=== PATIENT | female | born 1965 | race American Indian/Alaskan Native ===

== ENCOUNTER 2019-02-08 21:50 | Emergency (ER) | payer OTHER ==
--- NOTE | 2019-02-08 22:01 | Emergency Department Report ---
Blank Doc - Documentation Documentation: This is a 53-year-old female that presents with left flank pain with radiation to abdominal area. This initial assessment/diagnostic orders/clinical plan/treatment(s) is/are subject to change based on patient's health status, clinical progression and re- assessment by fellow clinical providers in the ED. Further treatment and workup at subsequent clinical providers discretion. Patient/guardians urged not to elope from the ED as their condition may be serious if not clinically assessed and managed. Initial orders include: 1- Patient sent to [facility] for further evaluation and treatment. 2-labs 3- UA
[2019-02-08 22:21] LABS: Basophils # (Auto) 0.1 K/mm3 (0.0-0.1); Basophils % (Auto) 0.8 % (0.0-1.8); Eosinophils # (Auto) 0.2 K/mm3 (0.0-0.4); Eosinophils % (Auto) 2.6 % (0.0-4.3); Hemoglobin 13.3 gm/dl (10.1-14.3); Lymphocytes # (Auto) 3.5 K/mm3 (1.2-5.4); Lymphocytes % (Auto) 37.1 % (13.4-35.0); Mean Corpuscular HGB Conc 34 % (30-34); Mean Corpuscular Volume 85 fl (79-97); Monocytes # (Auto) 0.8 K/mm3 (0.0-0.8); Monocytes % (Auto) 8.1 % (0.0-7.3); Platelet Count 213 K/mm3 (140-440); Red Blood Count 4.59 M/mm3 (3.65-5.03); Red Cell Distribution Width 15.5 % (13.2-15.2)
[2019-02-08 22:57] LABS: Alanine Aminotransferase 15 units/L (7-56); BUN/Creatinine Ratio 21; Blood Urea Nitrogen 17 mg/dL (7-17); Hemolysis Index 14
[2019-02-09 00:24] LABS: Bilirubin,Urine NEG (Negative); Blood,Urine NEG (Negative); Color,Urine Yellow (Yellow); Mucus,Urine FEW /HPF; Protein,Urine <15 mg/dL mg/dL (Negative); Urobilinogen,Urine < 2.0 mg/dL (<2.0); WBC,Urine < 1.0 /HPF (0.0-6.0)
[2019-02-09] MEDS ORDERED: DILAUDID IM ONE (02:31)
[2019-02-09] MEDS ORDERED: ZOFRAN ODT PO ONE (02:31)
[2019-02-09] MEDS ORDERED: TORADOL IM ONE (02:32)
[2019-02-09] MEDS ORDERED: DELTASONE PO ONE (02:32)
--- NOTE | 2019-02-09 03:41 | Emergency Department Report ---
ED General Adult HPI - General Chief complaint: Back Pain/Injury Stated complaint: BACK PAIN Time Seen by Provider: 02/08/19 22:00 Source: patient Mode of arrival: Ambulatory Limitations: No Limitations - History of Present Illness Initial comments: Patient is a 53 hours, female with a history of hypertension who presents to the ED with a complaint of acute onset nontraumatic low back pain but admits to left flank abdomen for the last 4 days. Patient states that the pain is sharp and persistently severe. Patient says that she was evaluated at another hospital ED and was given prescription for Tylenol with Codeine and a muscle relaxants with no relief. Patient denies hematuria, but particularly, abdominal pain, vaginal bleeding, fever, fall, traumatic injury, chills, urinary frequency and urgency, dysuria or shortness of breath. MD Complaint: low back pain -: Sudden, days(s) (4) Location: back Radiation: non-radiation Severity scale (0 -10): 6 Quality: burning, aching, sharp, constant Consistency: constant Improves with: none Worsens with: none Associated Symptoms: denies other symptoms. denies: confusion, chest pain, cough, diaphoresis, fever/chills, headaches, loss of appetite, malaise, shortness of breath, syncope, weakness, other Treatments Prior to Arrival: none - Related Data Previous Rx's Medication Instructions Recorded Last Taken Type Tobramycin [Tobrex 0.3%] 1 - 2 drop OP Q4HR #1 drops 08/14/14 Unknown Rx HYDROcodone/APAP 5-325 [[place] 1 each PO Q6HR PRN #12 tablet 05/01/16 Unknown Rx 5/325] Ibuprofen [Motrin 800 MG tab] 800 mg PO Q8HR PRN #30 tablet 05/01/16 Unknown Rx amLODIPine [Norvasc] 10 mg PO DAILY #30 tab 05/01/16 Unknown Rx Carisoprodol [Soma] 350 mg PO Q8H PRN #21 tablet 02/09/19 Unknown Rx Gabapentin [Neurontin] 300 mg PO Q8HR PRN #30 capsule 02/09/19 Unknown Rx Ketorolac [Toradol] 10 mg PO Q8H PRN #20 tablet 02/09/19 Unknown Rx Valacyclovir HCl [Valtrex] 1,000 mg PO Q8H #30 tablet 07/02/19 Unknown Rx Allergies Allergy/AdvReac Type Severity Reaction Status Date / Time morphine Allergy Itching Verified 08/14/14 10:48 tramadol Allergy Nausea Verified 05/01/16 14:44 ED Review of Systems ROS: Stated complaint: BACK PAIN Other details as noted in HPI Comment: All other systems reviewed and negative Constitutional: denies: chills, fever Eyes: denies: eye pain, eye discharge, vision change ENT: denies: ear pain, throat pain Respiratory: denies: cough, shortness of breath, wheezing Cardiovascular: denies: chest pain, palpitations Endocrine: no symptoms reported Gastrointestinal: denies: abdominal pain, nausea, diarrhea Genitourinary: denies: urgency, dysuria, discharge Musculoskeletal: back pain (lower back pain). denies: joint swelling, arthralgia Skin: denies: rash, lesions Neurological: denies: headache, weakness, paresthesias Psychiatric: denies: anxiety, depression Hematological/Lymphatic: denies: easy bleeding, easy bruising ED Past Medical Hx - Past Medical History Previous Medical History?: Yes Hx Hypertension: Yes - Surgical History Past Surgical History?: Yes Additional Surgical History: hysterectomy - Social History Smoking Status: Current Every Day Smoker Substance Use Type: None - Medications Home Medications: Home Medications Medication Instructions Recorded Confirmed Last Taken Type Tobramycin [Tobrex 0.3%] 1 - 2 drop OP Q4HR #1 drops 08/14/14 Unknown Rx HYDROcodone/APAP 5-325 [[place] 1 each PO Q6HR PRN #12 tablet 05/01/16 Unknown Rx 5/325] Ibuprofen [Motrin 800 MG tab] 800 mg PO Q8HR PRN #30 tablet 05/01/16 Unknown Rx amLODIPine [Norvasc] 10 mg PO DAILY #30 tab 05/01/16 Unknown Rx Carisoprodol [Soma] 350 mg PO Q8H PRN #21 tablet 02/09/19 Unknown Rx Gabapentin [Neurontin] 300 mg PO Q8HR PRN #30 capsule 02/09/19 Unknown Rx Ketorolac [Toradol] 10 mg PO Q8H PRN #20 tablet 02/09/19 Unknown Rx Valacyclovir HCl [Valtrex] 1,000 mg PO Q8H #30 tablet 02/09/19 Unknown Rx ED Physical Exam - General Limitations: No Limitations General appearance: alert, in no apparent distress - Head Head exam: Present: atraumatic, normocephalic, normal inspection - Eye Eye exam: Present: normal appearance, PERRL, EOMI - ENT ENT exam: Present: normal exam, normal orophraynx, mucous membranes moist, TM's normal bilaterally, normal external ear exam - Neck Neck exam: Present: normal inspection, full ROM. Absent: tenderness, lymphadenopathy, thyromegaly - Respiratory Respiratory exam: Present: normal lung sounds bilaterally. Absent: respiratory distress, wheezes, rales, chest wall tenderness, accessory muscle use - Cardiovascular Cardiovascular Exam: Present: regular rate, normal rhythm, normal heart sounds. Absent: systolic murmur, diastolic murmur, rubs, gallop - GI/Abdominal GI/Abdominal exam: Present: soft, normal bowel sounds. Absent: hyperactive bowel sounds, hypoactive bowel sounds, organomegaly - Rectal Rectal exam: Present: deferred - Extremities Exam Extremities exam: Present: normal inspection, full ROM, normal capillary refill - Back Exam Back exam: Present: normal inspection, tenderness, muscle spasm, paraspinal tenderness (Palpable lumbosacral paraspinal musculoskeletal tenderness) - Neurological Exam Neurological exam: Present: alert, oriented X3, CN II-XII intact, normal gait, reflexes normal - Psychiatric Psychiatric exam: Present: normal affect, normal mood - Skin Skin exam: Present: warm, dry, intact, normal color. Absent: rash ED Course Vital Signs 02/09/19 02/09/19 03:22 03:23 Respiratory 22 22 Rate - Reevaluation(s) Reevaluation #1: 02/09/19 03:43 Patient is alert and oriented 3 and is in no distress. Patient was treated for pain in the ED and urinalysis unremarkable. On reevaluation, patient's pain is moderately controlled and patient was discharged home medications and advised to follow-up with her primary care physician in 2-3 days for reevaluation or return to the ED immediately if symptoms get worse. ED Medical Decision Making - Lab Data Result diagrams: 02/08/19 22:04 02/08/19 22:04 - Medical Decision Making Patient is alert and oriented 3 and is in no distress. Patient was treated for pain in the ED and urinalysis unremarkable. On reevaluation, patient's pain is moderately controlled and patient was discharged home medications and advised to follow-up with her primary care physician in 2-3 days for reevaluation or re turn to the ED immediately if symptoms get worse. - Differential Diagnosis chronic low back pain with sciatica; muscle spasm of back; shingles Critical care attestation.: If time is entered above; I have spent that time in minutes in the direct care of this critically ill patient, excluding procedure time. ED Disposition Clinical Impression: Spasm of muscle of lower back, Lumbar radiculopathy, chronic Chronic low back pain with right-sided sciatica Qualifiers: Back pain laterality: left Qualified Code(s): M54.41 - Lumbago with sciatica, right side; G89.29 - Other chronic pain Shingles outbreak Qualifiers: Herpes zoster complications: without complications Qualified Code(s): B02.9 - Zoster without complications Disposition: TO HOME OR SELFCARE Is pt being admited?: No Does the pt Need Aspirin: No Condition: Stable Instructions: Lumbar Radiculopathy (ED), Arthralgia (ED), Herpes Zoster (ED), Muscle Spasm (ED) Additional Instructions: Take medications, drink plenty of rest and follow-up with your primary care physician in 5-7 days for reevaluation. Return to the ED immediately if symptoms get worse. Prescriptions: Gabapentin [Neurontin] 300 mg PO Q8HR PRN #30 capsule PRN Reason: Pain , Severe (7-10) Carisoprodol [Soma] 350 mg PO Q8H PRN #21 tablet PRN Reason: Spasms Ketorolac [Toradol] 10 mg PO Q8H PRN #20 tablet PRN Reason: Pain Valacyclovir HCl [Valtrex] 1,000 mg PO Q8H #30 tablet Referrals: [facility] [Outside] - 3-5 Days Time of Disposition: 03:46 Print Language: SAUDI ARABIAN
[2019-02-09 04:18] VITALS: BP 139/72
== END 2019-02-09 04:26 | disposition home or self-care (01) ==
LOC: ED 21:50
DX: M54.41 Lumbago with sciatica, right side (principal); M54.16 Radiculopathy, lumbar region; M62.830 Muscle spasm of back; B02.9 Zoster without complications; G89.29 Other chronic pain; Z88.6 Allergy status to analgesic agent
CPT/HCPCS: 36415; 80053; 81001; 85025; 96372; 99283; J1170; J1885; J7512; Q0162

== ENCOUNTER 2021-07-18 14:14 | Emergency (ER) | payer SELFPAY ==
--- NOTE | 2021-07-18 14:39 | Emergency Department Report ---
ED Chest Pain HPI - General Chief Complaint: Chest Pain Stated Complaint: R SIDE CHEST PAIN PUI?: No Time Seen by Provider: 07/18/21 14:24 Source: patient Mode of arrival: Wheelchair Limitations: No Limitations - History of Present Illness Initial Comments: Chief complaint chest pain HPI: This a 55-year-old female with history of tobacco dependence, hypertension who presents with severe 10 out of 10 right-sided chest pain. Pain is worse with inspiration and cough. Patient has had cold-like symptoms for the past week. On Friday Covid test negative. She works in a daycare. There was a possible Covid exposure at her job. She is not vaccinated against COVID-19. No previous history of heart disease. MD Complaint: chest pain -: Gradual, days(s) (2 days ago) Onset: during rest Severity scale (0 -10): 10 Quality: sharp Consistency: constant Improves With: nothing Worsens With: inspiration, movement (Coughing) Context: recent illness, other (Cold-like symptoms with cough possible Covid exp osure at a job) Other Symptoms: cough Treatments Prior to Arrival: none - Related Data Previous Rx's Medication Instructions Recorded Last Taken Type Tobramycin [Tobrex 0.3%] 1 - 2 drop OP Q4HR #1 drops 08/14/14 Unknown Rx HYDROcodone/APAP 5-325 [[place] 1 each PO Q6HR PRN #12 tablet 05/01/16 Unknown Rx 5/325] Ibuprofen [Motrin 800 MG tab] 800 mg PO Q8HR PRN #30 tablet 05/01/16 Unknown Rx amLODIPine 10 mg PO DAILY #30 tab 05/01/16 Unknown Rx Gabapentin 300 mg PO Q8HR PRN #30 capsule 02/09/19 Unknown Rx Ketorolac [Toradol] 10 mg PO Q8H PRN #20 tablet 02/09/19 Unknown Rx Valacyclovir HCl [Valtrex] 1,000 mg PO Q8H #30 tablet 02/09/19 Unknown Rx carisoprodoL [Soma] 350 mg PO Q8H PRN #21 tablet 02/09/19 Unknown Rx Amoxicillin/Potassium Clav 1 each PO BID 7 Days #144 tablet 07/18/21 Unknown Rx [Augmentin 875-125 Tablet] oxyCODONE /ACETAMINOPHEN [Percocet 1 tab PO Q6HR PRN #15 tablet 07/18/21 Unknown Rx 5/325] Allergies Allergy/AdvReac Type Severity Reaction Status Date / Time morphine Allergy Itching Verified 07/18/21 14:16 tramadol Allergy Nausea Verified 07/18/21 14:16 Heart Score - HEART Score History: Slightly suspicious EKG: Non-specific Age: 45-65 Risk factors: 1-2 risk factors Troponin: < normal limit HEART Score: 3 - EKG Read Time Time EKG Completed: 00:00 EKG Read Time: 00:00 - Critical Actions Critical Actions: 0-3 pts:0.9-1.7%risk of adverse cardiac event.Candidate for discharge ED Review of Systems ROS: Stated complaint: R SIDE CHEST PAIN Other details as noted in HPI Comment: All other systems reviewed and negative Constitutional: denies: chills, diaphoresis, fever Respiratory: cough, shortness of breath Cardiovascular: chest pain Gastrointestinal: denies: abdominal pain, nausea, vomiting Musculoskeletal: denies: back pain ED Past Medical Hx - Past Medical History Previous Medical History?: Yes Hx Hypertension: Yes - Surgical History Past Surgical History?: Yes Additional Surgical History: hysterectomy - Social History Smoking Status: Current Every Day Smoker Substance Use Type: None - Medications Home Medications: Home Medications Medication Instructions Recorded Confirmed Last Taken Type Tobramycin [Tobrex 0.3%] 1 - 2 drop OP Q4HR #1 drops 08/14/14 Unknown Rx HYDROcodone/APAP 5-325 [[place] 1 each PO Q6HR PRN #12 tablet 05/01/16 Unknown Rx 5/325] Ibuprofen [Motrin 800 MG tab] 800 mg PO Q8HR PRN #30 tablet 05/01/16 Unknown Rx amLODIPine 10 mg PO DAILY #30 tab 05/01/16 Unknown Rx Gabapentin 300 mg PO Q8HR PRN #30 capsule 02/09/19 Unknown Rx Ketorolac [Toradol] 10 mg PO Q8H PRN #20 tablet 02/09/19 Unknown Rx Valacyclovir HCl [Valtrex] 1,000 mg PO Q8H #30 tablet 02/09/19 Unknown Rx carisoprodoL [Soma] 350 mg PO Q8H PRN #21 tablet 02/09/19 Unknown Rx Amoxicillin/Potassium Clav 1 each PO BID 7 Days #144 tablet 07/18/21 Unknown Rx [Augmentin 875-125 Tablet] oxyCODONE /ACETAMINOPHEN [Percocet 1 tab PO Q6HR PRN #15 tablet 07/18/21 Unknown Rx 5/325] ED Physical Exam - General Limitations: No Limitations General appearance: alert, in no apparent distress, other (Patient tearful in s evere pain holding chest) - Head Head exam: Present: atraumatic, normocephalic - Eye Eye exam: Present: normal appearance - ENT ENT exam: Present: mucous membranes moist - Neck Neck exam: Present: normal inspection, full ROM - Respiratory Respiratory exam: Present: normal lung sounds bilaterally. Absent: respiratory distress, wheezes, rales, rhonchi - Cardiovascular Cardiovascular Exam: Present: regular rate, normal rhythm, normal heart sounds. Absent: systolic murmur, diastolic murmur, rubs, gallop - GI/Abdominal GI/Abdominal exam: Present: soft, normal bowel sounds. Absent: distended, tenderness, rebound - Extremities Exam Extremities exam: Present: normal inspection - Neurological Exam Neurological exam: Present: alert, oriented X3 - Psychiatric Psychiatric exam: Present: normal affect, normal mood - Skin Skin exam: Present: warm, dry, intact, normal color. Absent: rash ED Course Vital Signs 07/18/21 07/18/21 07/18/21 14:17 14:37 14:52 Temperature 98.2 F Pulse Rate 72 78 Respiratory 22 22 Rate Blood Pressure 124/103 143/80 [Left] O2 Sat by Pulse 99 98 98 Oximetry ED Medical Decision Making - Lab Data Result diagrams: 07/18/21 14:55 07/18/21 14:55 - EKG Data -: EKG Interpreted by Az - EKG Data 07/18/21 15:20 EKG@1451 EKG inserted by oh Sinus bradycardia rate 55 bpm normal axis normal intervals no ST elevation - Radiology Data Radiology results: report reviewed Patient Name: ANDREA SETHI Gender: Female Date of : 1965 Referring Provider: PA PETERSEN Organization: [facility] Accession Number: [id number] Requested Date: July 18, 2021 : Report Status: Final Requested Procedure: 1 Procedure Description: XR chest 1V ap Modality: XR Findings Reporting MD: Jr Bermeo Dictation Time: July 18, 2021 14:28 [employer] Set Up Operator: Not available Parimutuel Clerk Date: CHEST 1 VIEW 07/18/2021 3:08 PM INDICATION / CLINICAL INFORMATION: pleuritic right sided chest pain. COMPARISON: 11/13/2011 FINDINGS: SUPPORT DEVICES: None. HEART / MEDIASTINUM: No significant abnormality. LUNGS / PLEURA: Bibasilar opacities. No pneumothorax. ADDITIONAL FINDINGS: No significant additional findings. IMPRESSION: 1. Bibasilar opacities which may represent infectious process in the appropriate clinical setting. Signer Name: Jr Bermeo DO Signed: 07/18/2021 2:28 PM Workstation Name: [id number] Patient Name: ANDREA SETHI Gender: Female Date of : 1965 Referring Provider: PA PETERSEN Organization: [facility] Accession Number: [id number] Requested Date: July 18, 2021 14:40 Report Status: Final Requested Procedure: 1 Procedure Description: CT angio chest Modality: CT Findings Reporting MD: Sánchez Lan Dictation Time: July 18, 2021 17:00 [employer] Set Up Operator: Not available Parimutuel Clerk Date: CTA CHEST WITH CONTRAST INDICATION / CLINICAL INFORMATION: Right-sided pleuritic chest pain. Shortness of breath. TECHNIQUE: Axial CT images were obtained through the chest after injection of Omnipaque 350, 100 cc IV contrast. 3 plane MIP and/or 3D reconstructions were produced. All CT scans at this location are performed using CT dose reduction for ALARA by means of automated exposure control. COMPARISON: None available. FINDINGS: PULMONARY ARTERIES: No pulmonary emboli. THORACIC AORTA: No significant abnormality. HEART: No significant abnormality. CORONARY ARTERY CALCIFICATION: None. MEDIASTINUM / JONATHON: No significant abnormality. PLEURA: No pleural effusion. No pneumothorax. LUNGS: Moderate opacity right base. Mild opacity left base. ADDITIONAL FINDINGS: None. UPPER ABDOMEN: No acute findings. SKELETAL STRUCTURES: No significant osseous abnormality. IMPRESSION: 1. No CT evidence for pulmonary embolism. 2. Basilar opacity right greater than left. The appearance is more typical of atelectasis than pneumonia. Signer Name: Sánchez Lan MD Signed: 07/18/2021 5:00 PM Workstation Name: [id number] - Medical Decision Making Community-acquired pneumonia without evidence of PE. Troponin negative. Troponin x2 -. Prescribed Augmentin and Percocet. Recommended repeat Covid testing. Critical care attestation.: If time is entered above; I have spent that time in minutes in the direct care of this critically ill patient, excluding procedure time. ED Disposition Clinical Impression: Community acquired pneumonia, Suspected COVID-19 virus infection Disposition: HOME / SELF CARE / HOMELESS Is pt being admited?: No Does the pt Need Aspirin: No Condition: Stable Instructions: Bacterial Pneumonia (ED), Community-Acquired Pneumonia, Adult Prescriptions: Amoxicillin/Potassium Clav [Augmentin 875-125 Tablet] 1 each PO BID 7 Days #144 tablet oxyCODONE /ACETAMINOPHEN [Percocet 5/325] 1 tab PO Q6HR PRN #15 tablet PRN Reason: Pain Referrals: PRIMARY CARE, [Primary Care Provider] - 3-5 Days
[2021-07-18] MEDS ORDERED: ONDANSETRON 4 MG/2 ML INJ IV ONE (14:41)
[2021-07-18] MEDS ORDERED: HYDROmorphone 1 MG/1 ML INJ IV ONE (14:41)
[2021-07-18 14:53] VITALS: BP 143/80
[2021-07-18 15:14] LABS: Hematocrit 42.3 % (30.3-42.9); Hemoglobin 13.7 gm/dl (10.1-14.3); Mean Corpuscular HGB Conc 32 % (30-34); Mean Corpuscular Volume 84 fl (79-97); Platelet Count 227 K/mm3 (140-440); Red Blood Count 5.02 M/mm3 (3.65-5.03); Red Cell Distribution Width 15.4 % (13.2-15.2)
--- NOTE | 2021-07-18 15:32 | XRay Report ---
CHEST 1 VIEW 07/18/2021 3:08 PM INDICATION / CLINICAL INFORMATION: pleuritic right sided chest pain. COMPARISON: 11/13/2011 FINDINGS: SUPPORT DEVICES: None. HEART / MEDIASTINUM: No significant abnormality. LUNGS / PLEURA: Bibasilar opacities. No pneumothorax. ADDITIONAL FINDINGS: No significant additional findings. IMPRESSION: 1. Bibasilar opacities which may represent infectious process in the appropriate clinical setting. Signer Name: Jr Bermeo DO Signed: 07/18/2021 3:28 PM Workstation Name: [id number]
[2021-07-18 15:52] LABS: Alanine Aminotransferase 14 units/L (7-56); Albumin 4.3 g/dL (3.9-5); Blood Urea Nitrogen 17 mg/dL (7-17); Calcium 9.6 mg/dL (8.4-10.2); Hemolysis Index 16
[2021-07-18 15:56] LABS: BUN/Creatinine Ratio 34
[2021-07-18 17:45] LABS: RBC Morphology Normal; Total Cells Counted 100
--- NOTE | 2021-07-18 18:04 | Cat Scan Report ---
CTA CHEST WITH CONTRAST INDICATION / CLINICAL INFORMATION: Right-sided pleuritic chest pain. Shortness of breath. TECHNIQUE: Axial CT images were obtained through the chest after injection of Omnipaque 350, 100 cc I V contrast. 3 plane MIP and/or 3D reconstructions were produced. All CT scans at this location are pe rformed using CT dose reduction for ALARA by means of automated exposure control. COMPARISON: None available. FINDINGS: PULMONARY ARTERIES: No pulmonary emboli. THORACIC AORTA: No significant abnormality. HEART: No significant abnormality. CORONARY ARTERY CALCIFICATION: None. MEDIASTINUM / JONATHON: No significant abnormality. PLEURA: No pleural effusion. No pneumothorax. LUNGS: Moderate opacity right base. Mild opacity left base. ADDITIONAL FINDINGS: None. UPPER ABDOMEN: No acute findings. SKELETAL STRUCTURES: No significant osseous abnormality. IMPRESSION: 1. No CT evidence for pulmonary embolism. 2. Basilar opacity right greater than left. The appearance is more typical of atelectasis than pneumo do. Signer Name: Sánchez Lan MD Signed: 07/18/2021 6:00 PM Workstation Name: [id number]
[2021-07-18] MEDS ORDERED: oxyCODONE /ACETAMINOPHEN 5-325MG TAB PO ONE (18:26)
--- NOTE | 2021-07-19 10:32 | Electrocardiograph Report ---
[facility] Test Date: 2021-07-18 Test Time: 14:51:06 Pat Name: ANDREA SETHI Department: Room: Gender: F [employer] Helper: NAT : 1965 Requested By: AP PETERSEN Order Number: [id number] Reading MD: Raghu Mcgill Measurements Intervals [place] Rate: 55 P: 64 ME: 188 QRS: 19 QRSD: 88 T: 35 QT: 432 QTc: 414 Interpretive Statements Sinus bradycardia Poor R wave progression Low voltage QRS No previous ECG available for comparison Electronically Signed On 07-19-2021 10:32:35 EST by Raghu Mcgill
== END 2021-07-18 18:36 | disposition home or self-care (01) ==
LOC: ED 14:14
DX: J18.9 Pneumonia, unspecified organism (principal); I10 Essential (primary) hypertension; Z20.822 Contact with and (suspected) exposure to COVID-19; Z90.710 Acquired absence of both cervix and uterus
CPT/HCPCS: 36415; 71045; 71275; 80053; 84484; 85007; 85025; 93005; 96374; 96375; 99284; J1170; J2405; Q9967